=== PATIENT | male | born 1985 | race Two or more races ===

== ENCOUNTER → 2016-07-28 | Outpatient (CLI) | payer OTHER ==
--- NOTE | ~2016-07-28 | MR164 ---
[facility] A Service of [facility] RADIOLOGY TEXT RESULTS PATIENT: NICOLE GILMAN LOCATION: [facility] : 81 UNIT #: [id number] AGE: [address]: ROOSEVELT BARRAZA APRN SEX: M ORDER DR: [id number] [facility] [address] [place], [place] [address] [id number] O MR#: [id number] Acc #: [id number] NAME: NICOLE GILMAN. : 1985 SEX: M STUDY DATE/TIME: 07/28/2016 16:05 UNIT: [facility] ROOM: STUDY DESCRIPTION: MR Shoulder Wo Contrast Lt Attending Physician: Roosevelt Barraza Aprn Referring Physician: Roosevelt Barraza Aprn Ordering Physician: Roosevelt Barraza Aprn Primary Care Physician: Roosevelt Barraza Aprn MRI CENTER REPORT This report is preliminary unless electronic signature is present. EXAM MRI left shoulder, 07/28/2016. HISTORY Order states left shoulder injury. Negative x-ray. Left shoulder pain. History sheet states no specific trauma. 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 Pain started approximately 2-3 weeks ago and gradually increased with weakness. Difficulty with motion in any direction. Pain. No shoulder surgery. COMPARISON STUDIES No correlative studies. FINDINGS There is minimal capsular ligamentous thickening along the superior aspect of the AC joint. Coracoclavicular and coracoacromial ligaments are intact. There is no rotator cuff effacement by the AC joint. The rotator cuff muscle tendon complex is normal. There is no tendinosis, tear, or muscle abnormality. Biceps anchor, biceps tendon, and glenoid labrum are within normal limits. Glenohumeral joint shows no effusion, chondral/osteochondral lesion or visible loose body. There is no marrow lesion or fracture. Trace fluid within the subacromial-subdeltoid bursa is within normal limits. IMPRESSION [facility] A Service of [facility] RADIOLOGY TEXT RESULTS PATIENT: NICOLE GILMAN [facility] UNIT #: [id number] AGE: [address]: ROOSEVELT BARRAZA APRN SEX: M ORDER DR: 1. No abnormalities are demonstrated. 2. Minimal capsuloligamentous thickening at the superior AC joint is nonspecific. There is no inflammatory component. 3. Trace fluid subacromial-subdeltoid bursa is within normal degree. Dictated by... Emily Ewing M.D. THIS IS AN ELECTRONICALLY VERIFIED REPORT Emily wEing M.D. at 08/01/2016 2:13 PM CECILIA/tammi TD: 07/29/2016 12:31 JOB #: [id number] MRI CENTER REPORT Page 1 of 1 COPY
== END | disposition home or self-care (01) ==
LOC: CMRI 14:19
DX: M25.512 Pain in left shoulder (principal)
CPT/HCPCS: 73221

== ENCOUNTER 2016-11-07 20:33 | Emergency (ER) | payer OTHER ==
[~2016-11-07] VITALS: Ht 177.8 cm; Wt 104.3 kg
--- NOTE | ~2016-11-07 | CR20 ---
[facility] A Service of [facility] RADIOLOGY TEXT RESULTS PATIENT: NICOLE GILMAN LOCATION: [facility] : 81 UNIT #: [id number] AGE: [address]: Jeanine Regalado APRN SEX: M ORDER DR: [id number] [facility] [address] [place], [place] [address] [id number] E MR#: [id number] Acc #: [id number] NAME: NICOLE GILMAN. : 1985 SEX: M STUDY DATE/TIME: 11/07/2016 21:07 UNIT: [facility] ROOM: STUDY DESCRIPTION: CR Ankle Min 3 Views Lt Attending Physician: Jeanine Regalado A.P.R.N. Ordering Physician: Jeanine Regalado A.P.R.N. Primary Care Physician: Debra Barraza Aprn MEDICAL IMAGING REPORT This report is preliminary unless electronic signature is present EXAM Left ankle 3 views HISTORY Fell out of a golf cart 4 hours ago and has left ankle pain and swelling since. COMMENT Three views of the left ankle are reviewed. No acute fracture, dislocation, or radiopaque foreign body. IMPRESSION Negative plain film assessment left ankle. Dictated by... Alejandrina Coon M.D. THIS IS AN ELECTRONICALLY VERIFIED REPORT Alejandrina Coon M.D. at 11/08/2016 2:13 PM REX/mercedes TD: 11/08/2016 08:53 JOB #: [id number] MEDICAL IMAGING REPORT Page 1 of 1 COPY
--- NOTE | ~2016-11-07 | CR126 ---
[facility] A Service of [facility] RADIOLOGY TEXT RESULTS PATIENT: NICOLE GILMAN LOCATION: [facility] : 81 UNIT #: [id number] AGE: [address]: Jeanine Regalado APRN SEX: M ORDER DR: [id number] [facility] [address] [place], [place] [address] [id number] E MR#: [id number] Acc #: [id number] NAME: NICOLE GILMAN : 1985 SEX: M STUDY DATE/TIME: 11/07/2016 21:08 UNIT: [facility] ROOM: STUDY DESCRIPTION: CR Foot Complete Min 3 View Lt Attending Physician: Jeanine Regalado A.P.R.N. Ordering Physician: Jeanine Regalado A.P.R.N. Primary Care Physician: Debra Barraza R.N. MEDICAL IMAGING REPORT This report is preliminary unless electronic signature is present EXAM Left foot HISTORY Left foot pain and swelling since falling out of a golf cart 4 hours ago. COMMENT Three views of the left foot are reviewed. No acute fracture, dislocation, or radiopaque foreign body. There is probably some soft tissue swelling of the dorsum of the foot. IMPRESSION Suspect soft tissue swelling but no acute fracture, dislocation or radiopaque foreign body left foot. Dictated by... Alejandrina Coon M.D. THIS IS AN ELECTRONICALLY VERIFIED REPORT Alejandrina Coon M.D. at 11/08/2016 2:13 PM Rafy TD: 11/08/2016 08:50 JOB #: [id number] MEDICAL IMAGING REPORT Page 1 of 1 COPY
== END 2016-11-07 22:02 | disposition home or self-care (01) ==
LOC: CED 20:33 → CFTX 20:33
DX: S93.602A Unspecified sprain of left foot, initial encounter (principal); Z88.0 Allergy status to penicillin; W17.89XA Other fall from one level to another, initial encounter
CPT/HCPCS: 29540; 73610; 73630; 99283